=== PATIENT | female | born 1925 | race Caucasian/White ===

== ENCOUNTER 2016-08-25 17:18 | Inpatient (IN) | payer MEDICARE, OTHER ==
[~2016-08-25] VITALS: Ht 152.4 cm; Wt 59.6 kg
[~2016-08-25 17:18] MED LIST: ACET325T9 PO; AMLO5TAB2 PO; BISA10SU2 RC; BUSP10TA PO; CALC200T3 PO; CITA20TA5 PO; DEXT1CAP PO; FERR-26 PO; HYDR12.53 PO; LISI-334 PO; LOPE2TAB27 PO; LORA0.5T PO; MAG360OR24 PO; MIRT15TA PO; MULT-245 PO; POTA10CA PO; SENN1TAB13 PO
[2016-08-25] MEDS ORDERED: ZIPRASIDONE IM 20 MG VIAL. IM ONE (17:45)
[2016-08-25 17:48] LABS: BASO # 0.1 x10^3/uL (0.0-0.2); BASO % 1 % (0-3); EOS % 1 % (0-3); HEMATOCRIT 35.1 % (36.0-47.0); HEMOGLOBIN 11.4 g/dL (12.0-15.5); LYMPH # 3.8 x10^3/uL (1.0-4.8); LYMPH % 39 % (24-48); MEAN CORPUSCULAR HEMOGLOBIN 31 pg (25-35); MEAN CORPUSCULAR HGB CONC 32 g/dL (31-37); MEAN CORPUSCULAR VOLUME 97 fL (79-100); MONO % 9 % (0-9); NEUT % 51 % (31-73); PLATELET COUNT 519 x10^3/uL (140-400); RED BLOOD COUNT 3.63 x10^6/uL (3.50-5.40); RED CELL DISTRIBUTION WIDTH 15.9 % (11.5-14.5); WHITE BLOOD COUNT 9.7 x10^3/uL (4.0-11.0)
[2016-08-25 17:54] LABS: CALCIUM 9.7 mg/dL (8.5-10.1); CREATININE 1.1 mg/dL (0.6-1.0); GFR 46.8
[2016-08-25] MEDS ORDERED: IV NORMAL SALINE 500ML BAG 500 ML IV ONE (18:45)
[2016-08-25 18:50] LABS: ALBUMIN 2.7 g/dL (3.4-5.0); DIRECT BILIRUBIN 0.1 mg/dL (0.0-0.2); TOTAL BILIRUBIN 0.2 mg/dL (0.2-1.0); TOTAL PROTEIN 7.9 g/dL (6.4-8.2)
--- NOTE | 2016-08-25 18:56 | ED.ADGEN ---
Past Medical History Past Medical History: Anemia, Anxiety, Depression, GERD, High Cholesterol, Hypertension, Other Additional Past Medical Histor: Alzheimers, insomnia, pseudobulbar palsy, Past Surgical History: Hip Replacement Alcohol Use: None Drug Use: None Adult General Chief Complaint Chief Complaint: CHEST PAIN HPI HPI Patient is a 89 year old woman, history of Alzheimer's dementia, anemia, anxiety, hypertension, who presents the emergency department via EMS from her nursing facility with a report of 4 days of chest pain. Upon arrival to the emergency room, patient is denying complaints, and is calling for her mother and father, becomes agitated when we attempt to take vitals and obtain laboratory studies. Patient is a very limited historian. Per nursing report, patient has been complaining of pain for 4 days, and her nurse Marybel is "from the nurse gave her report, "she will jump and complain of pain if you even touch her". Review of Systems Review of Systems Patient is denying complaints, however she is a very limited historian. Current Medications Current Medications Current Medications Medications (Trade) Dose Ordered Sig/Antoine Start Time Stop Time Status Last Admin Dose Admin Sodium Chloride (Iv Sodium Chloride 0.9% 500ml Bag) 500 ml @ 500 mls/hr 1X ONCE 08/25/16 18:45 08/25/16 19:44 DC 08/25/16 18:41 500 MLS/HR Ziprasidone 20 mg 20 mg 1X ONCE 08/25/16 17:45 08/25/16 17:46 DC 08/25/16 17:45 20 MG Allergies Allergies Allergies Coded Allergies Type Severity Reaction Last Updated Verified codeine Allergy Intermediate 11/28/13 No sulfamethoxazole Allergy Intermediate 11/28/13 No trimethoprim Allergy Intermediate 11/28/13 No tuberculin, purified protein deriva Allergy Intermediate 11/28/13 No Physical Exam Physical Exam Constitutional: Well developed, thin, no acute distress, non-toxic appearance. Agitated with any contact. HENT: Normocephalic, atraumatic, bilateral external ears normal, oropharynx moist, no oral exudates, nose normal. [] Eyes: PERRLA, EOMI, conjunctiva normal, no discharge. [] Neck: Normal range of motion, no tenderness, supple, no stridor. [] Cardiovascular:Heart rate regular rhythm, no murmur, S1, S2, rubs or gallops. No chest or crepitus or tenderness. [] Lungs & Thorax: Diminished breath sounds at bases bilaterally, no wheezing, rhonchi, rales. No chest wall crepitus, difficult to determine tenderness, as patient is moving and pushing me away. No rashes or lesions identified. [] Abdomen: Bowel sounds normal, soft, no tenderness, no rebound, rigidity, no guarding, no masses, no pulsatile masses. [] Skin: Warm, dry, no erythema, no rash. [] Back: No tenderness, no CVA tenderness. [] Extremities: No tenderness, no cyanosis, no clubbing, ROM intact, no edema. [] Neurologic: Alert and awake, responding to both verbal and tactile stimuli, answer some questions appropriately, repetitively asking for her mother and father, normal motor function, normal sensory function, no focal deficits noted. [] Psychologic: Affect agitated. Current Patient Data Vital Signs Vital Signs Date Time Temp Pulse Resp B/P Pulse Ox O2 Delivery O2 Flow Rate FiO2 08/25/16 19:48 104 151/67 98 Room Air 08/25/16 18:18 22 08/25/16 17:18 97.4 97.4 Lab Values Laboratory Tests Test 08/25/16 17:30 08/25/16 19:56 White Blood Count 9.7x10^3/uL (4.0-11.0) Red Blood Count 3.63x10^6/uL (3.50-5.40) Hemoglobin 11.4g/dL (12.0-15.5) L Hematocrit 35.1% (36.0-47.0) L Mean Corpuscular Volume 97fL (79-100) Mean Corpuscular Hemoglobin 31pg (25-35) Mean Corpuscular Hemoglobin Concent 32g/dL (31-37) Red Cell Distribution Width 15.9% (11.5-14.5) H Platelet Count 519x10^3/uL (140-400) H Neutrophils (%) (Auto) 51% (31-73) Lymphocytes (%) (Auto) 39% (24-48) Monocytes (%) (Auto) 9% (0-9) Eosinophils (%) (Auto) 1% (0-3) Basophils (%) (Auto) 1% (0-3) Neutrophils # (Auto) 4.9x10^3uL (1.8-7.7) Lymphocytes # (Auto) 3.8x10^3/uL (1.0-4.8) Monocytes # (Auto) 0.8x10^3/uL (0.0-1.1) Eosinophils # (Auto) 0.1x10^3/uL (0.0-0.7) Basophils # (Auto) 0.1x10^3/uL (0.0-0.2) Sodium Level 140mmol/L (136-145) Potassium Level 4.0mmol/L (3.5-5.1) Chloride Level 100mmol/L (98-107) Carbon Dioxide Level 37mmol/L (21-32) H Anion Gap 3 (6-14) L Blood Urea Nitrogen 33mg/dL (7-20) H Creatinine 1.1mg/dL (0.6-1.0) H Estimated GFR (Cockcroft-Gault) 46.8 Glucose Level 123mg/dL (70-99) H Calcium Level 9.7mg/dL (8.5-10.1) Total Bilirubin 0.2mg/dL (0.2-1.0) Direct Bilirubin 0.1mg/dL (0.0-0.2) Aspartate Amino Transferase (AST) 19U/L (15-37) Alanine Aminotransferase (ALT) 19U/L (14-59) Alkaline Phosphatase 64U/L (46-116) Troponin I Quantitative < 0.017ng/mL (0.000-0.055) SW-Ziy-O-Type Natriuretic Peptide 335pg/mL (0-449) Total Protein 7.9g/dL (6.4-8.2) Albumin 2.7g/dL (3.4-5.0) L Lipase 72U/L (73-393) L Urine Collection Type U cath Urine Color Yellow Urine Clarity Cloudy Urine pH 7.5 Urine Specific [place] <=1.005 Urine Protein Negativemg/dL (NEG-TRACE) Urine Glucose (UA) Negativemg/dL (NEG) Urine Ketones (Stick) Negativemg/dL (NEG) Urine Blood Small (NEG) Urine Nitrite Negative (NEG) Urine Bilirubin Negative (NEG) Urine Urobilinogen Dipstick 0.2mg/dL (0.2 mg/dL) Urine Leukocyte Esterase Large (NEG) Urine RBC 3-5/HPF (0-2) Urine WBC >40/HPF (0-4) Urine Squamous Epithelial Cells Few/LPF Urine Bacteria Many/HPF (0-FEW) Urine Mucus Mod/LPF Laboratory Tests 08/25/16 17:30 Laboratory Tests 08/25/16 17:30 EKG EKG EC: Sinus rhythm, heart rate 97 beats minute, significant baseline artifact noted, due to patient motion, multiple attempts at ECGs were performed , QTC of 449, [place] 156, QRS is 68, no ST elevations or significant depressions identified, as stated evaluation is limited secondary to baseline artifact, does not meet STEMI criteria. As interpreted by me. [] Radiology/Procedures Radiology/Procedures Chest x-ray: One view: Image is compromised compromise secondary to patient rotation, however appears to be normal cardiac silhouette, normal pulmonary silhouette, no infiltrates, no effusions, no pneumothorax, no soft tissue or bony abnormalities identified. Patient with generalized mineralization. As interpreted by me. [] Course & Med Decision Making Course & Med Decision Making Pertinent Labs and Imaging studies reviewed. (See chart for details) Her nursing report, patient is complaining of chest pain, patient's complaint of chest pain in the ED, but again she is very limited historian. Did receive x- ray, which was unremarkable, ECG which was limited revealing acutely concerning findings, and enzymes in the emergency department, shot reveal acute concerning findings. Patient with mild dehydration. Receiving IV fluids, remained mildly tachycardic in the ED, was given Geodon IM due to agitation. Patient's agitation was improved. Discuss findings as above with Dr. Martin of internal medicine, will admit for serial troponins, and cardiac evaluation, patient accepted his service as a full admission to the medical telemetry floor at this time. Patient resting comfortably in the emergency department, transferred to the telemetry floor without issue, bridge orders entered per discussion. Dragon Disclaimer Dragon Disclaimer This electronic medical record was generated, in whole or in part, using a voice recognition dictation system. Departure Impression: Primary Impression: Chest pain Additional Impressions: Dehydration Tachycardia Disposition: ADMITTED INPATIENT Admitting Physician: Noam Martin Condition: IMPROVED Problem Qualifiers MARY ELLEN HAGER DO August 25, 2016 18:56
[2016-08-25 20:15] LABS: BILIRUBIN,URINE NEGATIVE (NEG); GLUCOSE,URINE NEGATIVE (NEG); NITRITE,URINE NEGATIVE (NEG); PH,URINE 7.5; PROTEIN,URINE NEGATIVE (NEG-TRACE); UROBILINOGEN,URINE 0.2 mg/dL (0.2 mg/dL)
[2016-08-25 20:21] LABS: BACTERIA,URINE MANY /HPF (0-FEW); SQUAMOUS EPITHELIAL CELL,UR FEW /LPF; WBC,URINE >40 /HPF (0-4)
[2016-08-25 22:07] VITALS: BP 132/84
[2016-08-25] MEDS: IV NORMAL SALINE 1000ML BAG 1,000 ML IV SCH (23:05)
[2016-08-25] MEDS ORDERED: ACETAMINOPHEN 325 MG TABLET. PO PRN (23:15)
[2016-08-25] MEDS ORDERED: ONDANSETRON PF 4 MG/2 ML VIAL. IV PRN (23:15)
[2016-08-25] MEDS ORDERED: FLUC150T PO (23:33)
[2016-08-25] MEDS ORDERED: ALPR0.25 PO (23:33)
[2016-08-25] MEDS ORDERED: SERT25TA4 PO (23:33)
[2016-08-25] MEDS ORDERED: BUSP10TA PO (23:33)
[2016-08-25] MEDS ORDERED: PANT20TA2 PO (23:33)
[2016-08-25] MEDS ORDERED: INSU100V8 SQ (23:33)
[2016-08-25] MEDS ORDERED: SPIR25TA PO (23:33)
[2016-08-25] MEDS ORDERED: ASPI81TA2 PO (23:33)
[2016-08-25] MEDS ORDERED: LACT1CAP41 PO (23:33)
[2016-08-25] MEDS ORDERED: DIVA125T PO (23:33)
[2016-08-25] MEDS ORDERED: QUET25TA5 PO (23:33)
[2016-08-25] MEDS ORDERED: METO25TA9 PO (23:33)
[2016-08-25] MEDS ORDERED: CYAN10002 IM (23:33)
--- NOTE | 2016-08-26 00:24 | HP ---
ADMIT DATE: 08/25/2016 CHIEF COMPLAINT: Chest pain. HISTORY OF PRESENT ILLNESS: The patient is a pleasant 89-year-old female who presents with chest pain. She has dementia, so we are really not sure how they can help with that at the facility, but nevertheless we are going to admit her and do a cardiac workup. It should be noted that she also has a urinary tract infection. PAST MEDICAL HISTORY: Dementia. ALLERGIES: None. FAMILY HISTORY: Diabetes and coronary artery disease. SOCIAL HISTORY: She lives in a facility. She does not drink, smoke or take drugs. MEDICATIONS: Reviewed, please refer to the MRAD. REVIEW OF SYSTEMS: Unobtainable, the patient is just too confused. PHYSICAL EXAMINATION: VITAL SIGNS: Temperature afebrile, pulse 100, respirations 18, blood pressure 144/62. GENERAL: She is pleasantly confused. HEART: Normal S1, S2. LUNGS: Clear. ABDOMEN: Soft, decreased bowel sounds. EXTREMITIES: No edema. SKIN: No rashes. PSYCHIATRIC: She is anxious. VASCULAR: Good capillary refill. ENDOCRINE: No thyromegaly. LYMPHATICS: No cervical nodes. HEMATOPOIETIC: No bruising. ASSESSMENT AND PLAN: Chest pain, dementia with incidental finding of a urinary tract infection. The patient has been admitted. We will give her IV fluids, IV antibiotics. Consult Cardiology, serial enzymes, serial EKGs, cardiac monitoring. LIZZIE PORTILLO DO DR: ARIANA/mat JOB#: [id number] / [id number]
--- NOTE | 2016-08-26 01:09 | ACF ---
Admission Forms Criteria CHEST PAIN Clinical Indications for Admission to Inpatient Care (Place 'X' for any and all applicable criteria): Admission is indicated for chest pain and ANY ONE of the following(1)(2)(3)(4)(5 ): [ ]I. Angina with acute coronary syndrome (Also use Myocardial Infarction or Angina guideline) [ ]II. Hemodynamic instability [ ]III. Angina needing acute intervention as indicated by ALL of the following( 11)(12): [ ]a) Unstable angina is present as indicated by angina that is ANY ONE of the following: [ ]i) New onset [ ]ii) Nocturnal [ ]iii) Prolonged at rest [ ]iv) Progressive [ ]b) Angina warrants acute intervention as indicated by ANY ONE of the following: [ ]i) Recurrent angina (e.g, not responding as previously to treatment) [ ]ii) Angina at rest or with low-level activities despite initial medical therapy [ ]iii) New or presumably new ST-segment depression on ECG [ ]iv) Signs or symptoms of heart failure (eg, dyspnea, pulmonary edema) [ ]v) New or worsening mitral regurgitation [ ]vi) Hemodynamic instability [ ]vii) Dangerous arrhythmia (eg, sustained ventricular tachycardia) [ ]viii) History of percutaneous coronary intervention within 6 months [ ]ix) History of coronary artery bypass graft surgery [ ]x) SARAH risk score of 2 or greater[A] [ ]xi) History of Diabetes(14) [ ]xii) High-risk cardiac ischemia findings on noninvasive testing (e.g, echocardiogram, treadmill testing, nuclear scan) [ ]xiii) Chronic renal insufficiency (ie, estimated GFR less than 60 mL/min/1.732m) [ ]xiv) Left ventricular ejection fraction less than 40% [ ]IV. Evidence of CT (eg, cardiac biomarkers positive, ST-segment elevation on ECG) also use Myocardial Infarction Criteria Form. [ ]V. Pulmonary edema [ ]. Respiratory distress [ ]VII. Chest pain indicative of serious diagnosis other than coronary artery disease (eg, aortic dissection) [ ]VIII. Contraindications and/or Inappropriate clinical situations for Observational Care in patients with Chest Pain, when ANY ONE of the following is required: [ ]a) Patient with risk factor for pulmonary embolism, acute coronary syndrome and myocardial infarction (18) [ ]b) Patient with Pulmonary embolism require an average LOS of 4.3 days, therefore emergency department observation management is inappropriate 18,23 [ ]c) Painful condition/s in the elderly, have the highest rate of recidivism after emergency department observation management (10.8%) 20,21,22 [ ]d) Elevated cardiac biomarker requires intensive and exhaustive care (19) [X]IX. General contraindications and/or Inappropriate clinical situations for Observational Care in patients with Chest Pain, when ANY ONE of the following is required: [X]a) Prediction of prolongation of LOS based on ANY ONE of the following may be considered as a contraindication for observational care 2, 3, 4, 5, 6, 7, 8, 9, 10, 11 [X]i) Age > 65 yrs. [ ]ii) Patient arriving by ambulance [ ]iii) Patient with high acuity [ ]iv) Patient requiring vital sign monitoring [X]v) Patient on IV medication [ ]b) Systolic blood pressures 180mmHg 3,12 [ ]c) Patient with altered mental status including delirium and other alteration of consciousness, (3) [ ]d) Patient whose discharge disposition will be to a [facility] home or rehabilitation home should not be managed in Emergency Department Observation Unit. CMS rule requires 3 days hospital stay before such placement. 3,13 [ ]e) Patient with failure to thrive due to broad array of etiologies 3,16,17 [ ]f) Inability to ambulate 3,14 Extended stay beyond goal length of stay may be needed for (1)(28): [ ]a) Specific condition diagnosed after evaluation (eg, pulmonary embolism, aortic dissection) [ ]b) Unstable angina [ ]c) Continued suspicion of acute coronary syndrome with inability to complete needed cardiac evaluation (eg, patient clinically unable to undergo stress testing) [ ]d) Myocardial infarction (Contents from ANGINA and CHEST PAIN clinical indications for admission to inpatient care have been integrated in this form) The original [facility] content created by [employer] has been revised. The portions of the content which have been revised are identified through the use of italic text or in bold, and [email or web address] has neither reviewed nor approved the modified material. All other unmodified content is copyright [employer]. Please see references footnoted in the original [facility] [employer] edition 2016 Admission Criteria Met?: Yes JAVI LLANOS August 26, 2016 01:08
[2016-08-26 03:01] VITALS: BP 128/66
[2016-08-26] MEDS ORDERED: CALCIUM CARBONATE 500 MG TAB.CHEW PO PRN (03:15)
[2016-08-26] MEDS ORDERED: LORAZEPAM 0.5 MG TABLET. PO PRN (03:15)
[2016-08-26] MEDS ORDERED: LOPERAMIDE 2 MG CAPSULE PO PRN (03:15)
[2016-08-26] MEDS ORDERED: ACETAMINOPHEN 325 MG TABLET. PO PRN (03:15)
[2016-08-26] MEDS ORDERED: BISACODYL 10 MG SUPP.RECT. RC PRN (03:15)
[2016-08-26] MEDS ORDERED: MAG HYDROX/ALUMINUM HYD/SIMETH 30 ML ORAL.SUSP PO PRN (03:30)
[2016-08-26 06:29] LABS: BASO # 0.1 x10^3/uL (0.0-0.2); BASO % 1 % (0-3); EOS % 1 % (0-3); HEMATOCRIT 32.4 % (36.0-47.0); HEMOGLOBIN 10.9 g/dL (12.0-15.5); LYMPH # 2.4 x10^3/uL (1.0-4.8); LYMPH % 28 % (24-48); MEAN CORPUSCULAR HEMOGLOBIN 32 pg (25-35); MEAN CORPUSCULAR HGB CONC 34 g/dL (31-37); MEAN CORPUSCULAR VOLUME 96 fL (79-100); MONO % 10 % (0-9); NEUT % 60 % (31-73); PLATELET COUNT 458 x10^3/uL (140-400); RED BLOOD COUNT 3.39 x10^6/uL (3.50-5.40); RED CELL DISTRIBUTION WIDTH 15.9 % (11.5-14.5); WHITE BLOOD COUNT 8.6 x10^3/uL (4.0-11.0)
[2016-08-26 06:36] LABS: CREATININE 0.9 mg/dL (0.6-1.0); POTASSIUM 3.8 mmol/L (3.5-5.1)
--- NOTE | 2016-08-26 06:44 | EKG ---
[facility] [address] [place] [address] Test Date: 2016-08-25 Test Time: 17:55:06 Pat Name: BUCK CEVALLOS Department: Room: [facility] Gender: F Client Services Specialist: : [id number] Requested By: MARY ELLEN HAGER Order Number: [id number] Reading MD: Rukhsana Carbone Measurements Intervals [place] Rate: 97 P: 90 AR: 156 QRS: 38 QRSD: 68 T: 54 QT: 350 QTc: 449 Interpretive Statements SINUS RHYTHM PREMATURE VENTRICULAR CONTRACTIONS ABNORMAL ECG Electronically Signed On 08-26-2016 12:17:31 CDT by Rukhsana Carbone
[2016-08-26 07:05] VITALS: BP 141/67
[2016-08-26] MEDS: PANTOPRAZOLE 40 MG TABLET.DR. PO SCH (07:27)
--- NOTE | 2016-08-26 08:10 | RAD ---
Indication chest pain. Change in mental status. A single view of the chest was obtained and is compared to an examination 11/28/2013. The patient is rotated on the film. The heart and pulmonary vessels appear within normal limits. A focal infiltrate is not seen. There are significant degenerative changes involving the shoulders left greater than right. Moderate compression of some of the thoracic vertebral body segments is noted which is likely chronic IMPRESSION: No acute or focal process seen in the chest
[2016-08-26] MEDS: LORAZEPAM 0.5 MG TABLET. PO SCH (08:32)
[2016-08-26] MEDS: FLUCONAZOLE 100 MG TABLET. PO SCH (08:32)
[2016-08-26] MEDS: ASPIRIN CHEWABLE 81 MG TABLET. PO SCH (08:32)
[2016-08-26] MEDS: LACTOBACILLUS ACIDOPH & BULGAR 1 TABLET. PO SCH ×3 (08:33→21:23)
[2016-08-26] MEDS: MULTIVITAMIN with MINERAL TABLET. PO SCH (08:33)
[2016-08-26] MEDS: DIVALPROEX SPRINKLES 125 MG CAPSULE. PO SCH ×2 (08:33→21:22)
[2016-08-26] MEDS: METOPROLOL TART IMMED RELEASE 25 MG TABLET. PO SCH ×2 (08:34→21:23)
[2016-08-26] MEDS: busPIRone 10 MG TABLET. PO SCH ×3 (08:34→21:23)
[2016-08-26] MEDS: FERROUS SULFATE 325 MG TABLET. PO SCH (08:34)
[2016-08-26] MEDS: DEXTROMETHORPHAN HBR PO SCH ×2 (09:00→21:00)
[2016-08-26] MEDS ORDERED: busPIRone 10 MG TABLET. PO SCH (09:00)
[2016-08-26] MEDS: QUINIDINE PO SCH ×2 (09:00→21:00)
--- NOTE | 2016-08-26 09:21 | PDOC2 ---
BRANDI PETERSEN TRUCK WASHER 08/26/16 0921: CARDIAC CONSULT DATE OF CONSULT Date of Consult DATE: 08/26/16 TIME: 09:14 REASON FOR CONSULT Reason for Consult: Chest pain REFERRING PHYSICIAN Referring Physician: Aleida SOURCE Source: Caregiver (son), Chart review HISTORY OF PRESENT ILLNESS HISTORY OF PRESENT ILLNESS This is a confuse 89 yo female admitted for chest pain and agitation. [facility] [place] [facility] [place] by her sons. Son (Martir) reports that pt does not have hx of heart disease and has not been complaining of any discomfort , SOA, dizziness or palpitations. At this point it is difficult to note the accuracy of any symptoms due to her severe dementia. However staff at the [facility] noted that she maybe having chest pain but at the same time she was touch or moved by staff and she basically noted with generalized discomfort. Currently denies any discomfort and sitting comfortably in bed. She is confused , cooperative and not in any distress. To add she was agitated overnight with notable hallucinations calling out her mother and father per chart review with underlying UTI. Per my discussion with her son, he just wants her to be comfortable, stay conservative, no invasive procedures. PAST MEDICAL HISTORY Cardiovascular: HTN, Hyperlipidemia CENTRAL NERVOUS SYSTEM: Dementia, Other (pseudobulbar palsy) GI: GERD Heme/Onc: Anemia NOS Psych: Anxiety, Depression Musculoskeletal: Osteoarthritis Renal/: UTI, Urinary Incontinence PAST SURGICAL HISTORY Past Surgical History: Total hip replacement FAMILY HISTORY Family History noncontributory to age SOCIAL HISTORY Smoke: No ALCOHOL: none Drugs: None Lives: [facility] Living CURRENT MEDICATIONS CURRENT MEDICATIONS Current Medications Medications (Trade) Dose Ordered Sig/Antoine Route PRN Reason Start Time Stop Time Status Last Admin Dose Admin Ziprasidone 20 mg 20 mg 1X ONCE IM 08/25/16 17:45 08/25/16 17:46 DC 08/25/16 17:45 Sodium Chloride 500 ml @ 500 mls/hr 1X ONCE IV 08/25/16 18:45 08/25/16 19:44 DC 08/25/16 18:41 Ceftriaxone Sodium 50 ml @ 100 mls/hr 1X ONCE IV 08/25/16 20:45 08/25/16 21:14 DC 08/25/16 20:40 Sodium Chloride (Iv Sodium Chloride 0.9% 1000ml Bag) 1,000 ml @ 75 mls/hr [id number] IV 08/25/16 23:05 08/26/16 23:04 08/25/16 23:05 Buspirone HCl (Buspar) 10 mg TID PO 08/26/16 09:00 08/26/16 08:34 Ferrous Sulfate (Feosol) 325 mg DAILY PO 08/26/16 09:00 08/26/16 08:34 Lorazepam (Ativan) 0.25 mg PRN BID PRN PO ANXIETY 08/26/16 03:15 08/26/16 03:26 Lorazepam (Ativan) 0.25 mg DAILY PO 08/26/16 09:00 08/26/16 08:32 Metoprolol Tartrate (Lopressor) 25 mg BID PO 08/26/16 09:00 08/26/16 08:34 Divalproex Sodium (Depakote Sprinkles) 125 mg BID PO 08/26/16 09:00 08/26/16 08:33 Fluconazole (Diflucan) 150 mg DAILY PO 08/26/16 09:00 08/26/16 08:32 Lactobacillus Acidophilus (Bacid, Angelita-Bid) 2 tab TID PO 08/26/16 09:00 08/26/16 08:33 Multivitamins (Thera M Plus) 1 tab DAILY PO 08/26/16 09:00 08/26/16 08:33 Pantoprazole Sodium (Protonix) 40 mg DAILYAC PO 08/26/16 07:30 08/26/16 07:27 Aspirin (Children'S Aspirin) 81 mg DAILY PO 08/26/16 09:00 08/26/16 08:32 ALLERGIES ALLERGIES: Coded Allergies: codeine (Unverified Allergy, Intermediate, 11/28/13) sulfamethoxazole (Unverified Allergy, Intermediate, 11/28/13) trimethoprim (Unverified Allergy, Intermediate, 11/28/13) tuberculin, purified protein deriva (Unverified Allergy, Intermediate, 11/28) ROS Review of System unreliable, severe dementia PHYSICAL EXAM General: Alert, Cooperative, No acute distress HEENT: Atraumatic, Mucous membr. moist/pink Lungs: Clear to auscultation, Normal air movement Heart: Regular rate (SR), Normal S1, Normal S2, Other (2/6 systolic murmur to LLS border) Abdomen: Soft, No tenderness Extremities: No cyanosis, No edema Skin: No breakdown, No significant lesion Neuro: Normal speech, Sensation intact Psych/Mental Status: Other (confuse) MUSCULOSKELETAL: Osteoarthritic changes both hands VITALS VITALS Vital Signs Date Time Temp Pulse Resp B/P Pulse Ox O2 Delivery O2 Flow Rate FiO2 08/26/16 08:34 89 141/67 08/26/16 07:05 96.4 18 97 Room Air 96.4 LABS Lab: Laboratory Tests Test 08/25/16 17:30 08/25/16 19:56 08/26/16 00:15 08/26/16 06:10 White Blood Count 9.7x10^3/uL (4.0-11.0) 8.6x10^3/uL (4.0-11.0) Red Blood Count 3.63x10^6/uL (3.50-5.40) 3.39x10^6/uL (3.50-5.40) Hemoglobin 11.4g/dL (12.0-15.5) 10.9g/dL (12.0-15.5) Hematocrit 35.1% (36.0-47.0) 32.4% (36.0-47.0) Mean Corpuscular Volume 97fL (79-100) 96fL (79-100) Mean Corpuscular Hemoglobin 31pg (25-35) 32pg (25-35) Mean Corpuscular Hemoglobin Concent 32g/dL (31-37) 34g/dL (31-37) Red Cell Distribution Width 15.9% (11.5-14.5) 15.9% (11.5-14.5) Platelet Count 519x10^3/uL (140-400) 458x10^3/uL (140-400) Neutrophils (%) (Auto) 51% (31-73) 60% (31-73) Lymphocytes (%) (Auto) 39% (24-48) 28% (24-48) Monocytes (%) (Auto) 9% (0-9) 10% (0-9) Eosinophils (%) (Auto) 1% (0-3) 1% (0-3) Basophils (%) (Auto) 1% (0-3) 1% (0-3) Neutrophils # (Auto) 4.9x10^3uL (1.8-7.7) 5.1x10^3uL (1.8-7.7) Lymphocytes # (Auto) 3.8x10^3/uL (1.0-4.8) 2.4x10^3/uL (1.0-4.8) Monocytes # (Auto) 0.8x10^3/uL (0.0-1.1) 0.8x10^3/uL (0.0-1.1) Eosinophils # (Auto) 0.1x10^3/uL (0.0-0.7) 0.1x10^3/uL (0.0-0.7) Basophils # (Auto) 0.1x10^3/uL (0.0-0.2) 0.1x10^3/uL (0.0-0.2) Sodium Level 140mmol/L (136-145) 143mmol/L (136-145) Potassium Level 4.0mmol/L (3.5-5.1) 3.8mmol/L (3.5-5.1) Chloride Level 100mmol/L (98-107) 105mmol/L (98-107) Carbon Dioxide Level 37mmol/L (21-32) 32mmol/L (21-32) Anion Gap 3 (6-14) 6 (6-14) Blood Urea Nitrogen 33mg/dL (7-20) 26mg/dL (7-20) Creatinine 1.1mg/dL (0.6-1.0) 0.9mg/dL (0.6-1.0) Estimated GFR (Cockcroft-Gault) 46.8 59.0 Glucose Level 123mg/dL (70-99) 109mg/dL (70-99) Calcium Level 9.7mg/dL (8.5-10.1) 9.0mg/dL (8.5-10.1) Total Bilirubin 0.2mg/dL (0.2-1.0) Direct Bilirubin 0.1mg/dL (0.0-0.2) Aspartate Amino Transf (AST/SGOT) 19U/L (15-37) Alanine Aminotransferase (ALT/SGPT) 19U/L (14-59) Alkaline Phosphatase 64U/L (46-116) Troponin I Quantitative < 0.017ng/mL (0.000-0.055) < 0.017ng/mL (0.000-0.055) < 0.017ng/mL (0.000-0.055) WL-Uwt-A-Type Natriuretic Peptide 335pg/mL (0-449) Total Protein 7.9g/dL (6.4-8.2) Albumin 2.7g/dL (3.4-5.0) Lipase 72U/L (73-393) Urine Collection Type U cath Urine Color Yellow Urine Clarity Cloudy Urine pH 7.5 Urine Specific [place] <=1.005 Urine Protein Negativemg/dL (NEG-TRACE) Urine Glucose (UA) Negativemg/dL (NEG) Urine Ketones (Stick) Negativemg/dL (NEG) Urine Blood Small (NEG) Urine Nitrite Negative (NEG) Urine Bilirubin Negative (NEG) Urine Urobilinogen Dipstick 0.2mg/dL (0.2 mg/dL) Urine Leukocyte Esterase Large (NEG) Urine RBC 3-5/HPF (0-2) Urine WBC >40/HPF (0-4) Urine Squamous Epithelial Cells Few/LPF Urine Bacteria Many/HPF (0-FEW) Urine Mucus Mod/LPF Test 08/26/16 07:24 Glucose (Fingerstick) 78mg/dL (70-99) ECHOCARDIOGRAM ECHOCARDIOGRAM <Conclusion> j Left ventricle systolic function is normal. The Ejection Fraction is 50-55%. The left atrium size is normal. The aortic valve is normal in structure and function. The mitral valve is normal in structure and function. Doppler and Color Flow revealed mild mitral regurgitation. Doppler and Color Flow revealed mild tricuspid regurgitation. The PA pressure was estimated at 37 mmHg. Doppler and Color Flow revealed trace pulmonic valvular regurgitation. DATE: 11/30/13 1248 ASSESSMENT/PLAN ASSESSMENT/PLAN 1. Atypical CP: troponin series normal. EKG SR with no acute changes 2. UTI: per PCP 3. HTN: controlled 4. Severe dementia with Alzheimer's 5. Dehydration: per PCP Recommendations 1. CP likely MSK, discussed significantly with son, maintain conservative measures given her severe dementia and advanced age. 2. No further testing, will sign off. Problems: COLEMAN ADKINS MD 08/26/16 2151: CARDIAC CONSULT ALLERGIES ALLERGIES: Coded Allergies: codeine (Unverified Allergy, Intermediate, 11/28/13) sulfamethoxazole (Unverified Allergy, Intermediate, 11/28/13) trimethoprim (Unverified Allergy, Intermediate, 11/28/13) tuberculin, purified protein deriva (Unverified Allergy, Intermediate, 11/28) ASSESSMENT/PLAN ASSESSMENT/PLAN Pt. seen and examined. Agree with above DRYING SUPERVISOR note. 89 yo with severe dementia. Normal cardiac exam echo ordered by hospitalist service, which reveals normal funciton Thanks for consult. No further testing. Problems: BRANDI PETERSEN APRN August 26, 2016 09:21 COLEMAN ADKINS MD August 26, 2016 21:51
[2016-08-26 10:48] VITALS: BP 121/58
[2016-08-26] MEDS ORDERED: SPIRONOLACTONE 25 MG TABLET PO SCH (13:00)
[2016-08-26] MEDS: QUEtiapine 25 MG TABLET. PO SCH (13:10)
[2016-08-26] MEDS: IV NORMAL SALINE 1000ML BAG 1,000 ML IV SCH (13:19)
--- NOTE | 2016-08-26 13:35 | PDOC ---
PROGRESS NOTES Chief Complaint Chief Complaint 1. chest pain, atypical, likely 2/2 muscular pain 2. severe dementia 3. DNR, from SNF 4. HTN 5. dehydration 6. + UA 7. moderate malnutrition with low po intake 8. bedbound plan: card consult, no intervention check echo cont home meds, levemir 5u qhs, SSI dc aldactone ivf nutrition consult dvt ppx History of Present Illness History of Present Illness chest pain gone, chest wall mild tenderness Vitals Vitals Vital Signs Date Time Temp Pulse Resp B/P Pulse Ox O2 Delivery O2 Flow Rate FiO2 08/26/16 10:48 97.9 66 18 121/58 97 Room Air 97.9 Physical Exam General: Alert, Cooperative, No acute distress Heart: Regular rate (SR), Normal S1, Normal S2, Other (2/6 systolic murmur to LLS border) Lungs: Clear Abdomen: Soft, No tenderness Extremities: No cyanosis, No edema Skin: No breakdown, No significant lesion Labs LABS Laboratory Tests Test 08/25/16 17:30 08/25/16 19:56 08/26/16 00:15 08/26/16 06:00 White Blood Count 9.7x10^3/uL (4.0-11.0) Red Blood Count 3.63x10^6/uL (3.50-5.40) Hemoglobin 11.4g/dL (12.0-15.5) Hematocrit 35.1% (36.0-47.0) Mean Corpuscular Volume 97fL (79-100) Mean Corpuscular Hemoglobin 31pg (25-35) Mean Corpuscular Hemoglobin Concent 32g/dL (31-37) Red Cell Distribution Width 15.9% (11.5-14.5) Platelet Count 519x10^3/uL (140-400) Neutrophils (%) (Auto) 51% (31-73) Lymphocytes (%) (Auto) 39% (24-48) Monocytes (%) (Auto) 9% (0-9) Eosinophils (%) (Auto) 1% (0-3) Basophils (%) (Auto) 1% (0-3) Neutrophils # (Auto) 4.9x10^3uL (1.8-7.7) Lymphocytes # (Auto) 3.8x10^3/uL (1.0-4.8) Monocytes # (Auto) 0.8x10^3/uL (0.0-1.1) Eosinophils # (Auto) 0.1x10^3/uL (0.0-0.7) Basophils # (Auto) 0.1x10^3/uL (0.0-0.2) Sodium Level 140mmol/L (136-145) Potassium Level 4.0mmol/L (3.5-5.1) Chloride Level 100mmol/L (98-107) Carbon Dioxide Level 37mmol/L (21-32) Anion Gap 3 (6-14) Blood Urea Nitrogen 33mg/dL (7-20) Creatinine 1.1mg/dL (0.6-1.0) Estimated GFR (Cockcroft-Gault) 46.8 Glucose Level 123mg/dL (70-99) Calcium Level 9.7mg/dL (8.5-10.1) Total Bilirubin 0.2mg/dL (0.2-1.0) Direct Bilirubin 0.1mg/dL (0.0-0.2) Aspartate Amino Transf (AST/SGOT) 19U/L (15-37) Alanine Aminotransferase (ALT/SGPT) 19U/L (14-59) Alkaline Phosphatase 64U/L (46-116) Troponin I Quantitative < 0.017ng/mL (0.000-0.055) < 0.017ng/mL (0.000-0.055) XK-Zxz-O-Type Natriuretic Peptide 335pg/mL (0-449) Total Protein 7.9g/dL (6.4-8.2) Albumin 2.7g/dL (3.4-5.0) Lipase 72U/L (73-393) Urine Collection Type U cath Urine Color Yellow Urine Clarity Cloudy Urine pH 7.5 Urine Specific Leon <=1.005 Urine Protein Negativemg/dL (NEG-TRACE) Urine Glucose (UA) Negativemg/dL (NEG) Urine Ketones (Stick) Negativemg/dL (NEG) Urine Blood Small (NEG) Urine Nitrite Negative (NEG) Urine Bilirubin Negative (NEG) Urine Urobilinogen Dipstick 0.2mg/dL (0.2 mg/dL) Urine Leukocyte Esterase Large (NEG) Urine RBC 3-5/HPF (0-2) Urine WBC >40/HPF (0-4) Urine Squamous Epithelial Cells Few/LPF Urine Bacteria Many/HPF (0-FEW) Urine Mucus Mod/LPF Nasal Screen MRSA (PCR) Negative (Negative) Test 08/26/16 06:10 08/26/16 07:24 08/26/16 11:17 White Blood Count 8.6x10^3/uL (4.0-11.0) Red Blood Count 3.39x10^6/uL (3.50-5.40) Hemoglobin 10.9g/dL (12.0-15.5) Hematocrit 32.4% (36.0-47.0) Mean Corpuscular Volume 96fL (79-100) Mean Corpuscular Hemoglobin 32pg (25-35) Mean Corpuscular Hemoglobin Concent 34g/dL (31-37) Red Cell Distribution Width 15.9% (11.5-14.5) Platelet Count 458x10^3/uL (140-400) Neutrophils (%) (Auto) 60% (31-73) Lymphocytes (%) (Auto) 28% (24-48) Monocytes (%) (Auto) 10% (0-9) Eosinophils (%) (Auto) 1% (0-3) Basophils (%) (Auto) 1% (0-3) Neutrophils # (Auto) 5.1x10^3uL (1.8-7.7) Lymphocytes # (Auto) 2.4x10^3/uL (1.0-4.8) Monocytes # (Auto) 0.8x10^3/uL (0.0-1.1) Eosinophils # (Auto) 0.1x10^3/uL (0.0-0.7) Basophils # (Auto) 0.1x10^3/uL (0.0-0.2) Sodium Level 143mmol/L (136-145) Potassium Level 3.8mmol/L (3.5-5.1) Chloride Level 105mmol/L (98-107) Carbon Dioxide Level 32mmol/L (21-32) Anion Gap 6 (6-14) Blood Urea Nitrogen 26mg/dL (7-20) Creatinine 0.9mg/dL (0.6-1.0) Estimated GFR (Cockcroft-Gault) 59.0 Glucose Level 109mg/dL (70-99) Calcium Level 9.0mg/dL (8.5-10.1) Troponin I Quantitative < 0.017ng/mL (0.000-0.055) Glucose (Fingerstick) 78mg/dL (70-99) 133mg/dL (70-99) Review of Systems Review of Systems No fever, chills, sob or chest pain Assessment and Plan Assessmemt and Plan Problems Medical Problems: (1) Chest pain Status: Acute (2) Dehydration Status: Acute (3) Tachycardia Status: Acute Problems: Comment Review of Relevant I have reviewed the following items jarred (where applicable) has been applied. Labs Laboratory Tests Test 08/25/16 17:30 08/25/16 19:56 08/26/16 00:15 08/26/16 06:00 White Blood Count 9.7x10^3/uL (4.0-11.0) Red Blood Count 3.63x10^6/uL (3.50-5.40) Hemoglobin 11.4g/dL (12.0-15.5) Hematocrit 35.1% (36.0-47.0) Mean Corpuscular Volume 97fL (79-100) Mean Corpuscular Hemoglobin 31pg (25-35) Mean Corpuscular Hemoglobin Concent 32g/dL (31-37) Red Cell Distribution Width 15.9% (11.5-14.5) Platelet Count 519x10^3/uL (140-400) Neutrophils (%) (Auto) 51% (31-73) Lymphocytes (%) (Auto) 39% (24-48) Monocytes (%) (Auto) 9% (0-9) Eosinophils (%) (Auto) 1% (0-3) Basophils (%) (Auto) 1% (0-3) Neutrophils # (Auto) 4.9x10^3uL (1.8-7.7) Lymphocytes # (Auto) 3.8x10^3/uL (1.0-4.8) Monocytes # (Auto) 0.8x10^3/uL (0.0-1.1) Eosinophils # (Auto) 0.1x10^3/uL (0.0-0.7) Basophils # (Auto) 0.1x10^3/uL (0.0-0.2) Sodium Level 140mmol/L (136-145) Potassium Level 4.0mmol/L (3.5-5.1) Chloride Level 100mmol/L (98-107) Carbon Dioxide Level 37mmol/L (21-32) Anion Gap 3 (6-14) Blood Urea Nitrogen 33mg/dL (7-20) Creatinine 1.1mg/dL (0.6-1.0) Estimated GFR (Cockcroft-Gault) 46.8 Glucose Level 123mg/dL (70-99) Calcium Level 9.7mg/dL (8.5-10.1) Total Bilirubin 0.2mg/dL (0.2-1.0) Direct Bilirubin 0.1mg/dL (0.0-0.2) Aspartate Amino Transf (AST/SGOT) 19U/L (15-37) Alanine Aminotransferase (ALT/SGPT) 19U/L (14-59) Alkaline Phosphatase 64U/L (46-116) Troponin I Quantitative < 0.017ng/mL (0.000-0.055) < 0.017ng/mL (0.000-0.055) VS-Mat-W-Type Natriuretic Peptide 335pg/mL (0-449) Total Protein 7.9g/dL (6.4-8.2) Albumin 2.7g/dL (3.4-5.0) Lipase 72U/L (73-393) Urine Collection Type U cath Urine Color Yellow Urine Clarity Cloudy Urine pH 7.5 Urine Specific Leon <=1.005 Urine Protein Negativemg/dL (NEG-TRACE) Urine Glucose (UA) Negativemg/dL (NEG) Urine Ketones (Stick) Negativemg/dL (NEG) Urine Blood Small (NEG) Urine Nitrite Negative (NEG) Urine Bilirubin Negative (NEG) Urine Urobilinogen Dipstick 0.2mg/dL (0.2 mg/dL) Urine Leukocyte Esterase Large (NEG) Urine RBC 3-5/HPF (0-2) Urine WBC >40/HPF (0-4) Urine Squamous Epithelial Cells Few/LPF Urine Bacteria Many/HPF (0-FEW) Urine Mucus Mod/LPF Nasal Screen MRSA (PCR) Negative (Negative) Test 08/26/16 06:10 08/26/16 07:24 08/26/16 11:17 White Blood Count 8.6x10^3/uL (4.0-11.0) Red Blood Count 3.39x10^6/uL (3.50-5.40) Hemoglobin 10.9g/dL (12.0-15.5) Hematocrit 32.4% (36.0-47.0) Mean Corpuscular Volume 96fL (79-100) Mean Corpuscular Hemoglobin 32pg (25-35) Mean Corpuscular Hemoglobin Concent 34g/dL (31-37) Red Cell Distribution Width 15.9% (11.5-14.5) Platelet Count 458x10^3/uL (140-400) Neutrophils (%) (Auto) 60% (31-73) Lymphocytes (%) (Auto) 28% (24-48) Monocytes (%) (Auto) 10% (0-9) Eosinophils (%) (Auto) 1% (0-3) Basophils (%) (Auto) 1% (0-3) Neutrophils # (Auto) 5.1x10^3uL (1.8-7.7) Lymphocytes # (Auto) 2.4x10^3/uL (1.0-4.8) Monocytes # (Auto) 0.8x10^3/uL (0.0-1.1) Eosinophils # (Auto) 0.1x10^3/uL (0.0-0.7) Basophils # (Auto) 0.1x10^3/uL (0.0-0.2) Sodium Level 143mmol/L (136-145) Potassium Level 3.8mmol/L (3.5-5.1) Chloride Level 105mmol/L (98-107) Carbon Dioxide Level 32mmol/L (21-32) Anion Gap 6 (6-14) Blood Urea Nitrogen 26mg/dL (7-20) Creatinine 0.9mg/dL (0.6-1.0) Estimated GFR (Cockcroft-Gault) 59.0 Glucose Level 109mg/dL (70-99) Calcium Level 9.0mg/dL (8.5-10.1) Troponin I Quantitative < 0.017ng/mL (0.000-0.055) Glucose (Fingerstick) 78mg/dL (70-99) 133mg/dL (70-99) Laboratory Tests Test 08/25/16 17:30 08/25/16 19:56 08/26/16 00:15 08/26/16 06:00 White Blood Count 9.7x10^3/uL (4.0-11.0) Red Blood Count 3.63x10^6/uL (3.50-5.40) Hemoglobin 11.4g/dL (12.0-15.5) Hematocrit 35.1% (36.0-47.0) Mean Corpuscular Volume 97fL (79-100) Mean Corpuscular Hemoglobin 31pg (25-35) Mean Corpuscular Hemoglobin Concent 32g/dL (31-37) Red Cell Distribution Width 15.9% (11.5-14.5) Platelet Count 519x10^3/uL (140-400) Neutrophils (%) (Auto) 51% (31-73) Lymphocytes (%) (Auto) 39% (24-48) Monocytes (%) (Auto) 9% (0-9) Eosinophils (%) (Auto) 1% (0-3) Basophils (%) (Auto) 1% (0-3) Neutrophils # (Auto) 4.9x10^3uL (1.8-7.7) Lymphocytes # (Auto) 3.8x10^3/uL (1.0-4.8) Monocytes # (Auto) 0.8x10^3/uL (0.0-1.1) Eosinophils # (Auto) 0.1x10^3/uL (0.0-0.7) Basophils # (Auto) 0.1x10^3/uL (0.0-0.2) Sodium Level 140mmol/L (136-145) Potassium Level 4.0mmol/L (3.5-5.1) Chloride Level 100mmol/L (98-107) Carbon Dioxide Level 37mmol/L (21-32) Anion Gap 3 (6-14) Blood Urea Nitrogen 33mg/dL (7-20) Creatinine 1.1mg/dL (0.6-1.0) Estimated GFR (Cockcroft-Gault) 46.8 Glucose Level 123mg/dL (70-99) Calcium Level 9.7mg/dL (8.5-10.1) Total Bilirubin 0.2mg/dL (0.2-1.0) Direct Bilirubin 0.1mg/dL (0.0-0.2) Aspartate Amino Transf (AST/SGOT) 19U/L (15-37) Alanine Aminotransferase (ALT/SGPT) 19U/L (14-59) Alkaline Phosphatase 64U/L (46-116) Troponin I Quantitative < 0.017ng/mL (0.000-0.055) < 0.017ng/mL (0.000-0.055) XW-Cml-G-Type Natriuretic Peptide 335pg/mL (0-449) Total Protein 7.9g/dL (6.4-8.2) Albumin 2.7g/dL (3.4-5.0) Lipase 72U/L (73-393) Urine Collection Type U cath Urine Color Yellow Urine Clarity Cloudy Urine pH 7.5 Urine Specific Leon <=1.005 Urine Protein Negativemg/dL (NEG-TRACE) Urine Glucose (UA) Negativemg/dL (NEG) Urine Ketones (Stick) Negativemg/dL (NEG) Urine Blood Small (NEG) Urine Nitrite Negative (NEG) Urine Bilirubin Negative (NEG) Urine Urobilinogen Dipstick 0.2mg/dL (0.2 mg/dL) Urine Leukocyte Esterase Large (NEG) Urine RBC 3-5/HPF (0-2) Urine WBC >40/HPF (0-4) Urine Squamous Epithelial Cells Few/LPF Urine Bacteria Many/HPF (0-FEW) Urine Mucus Mod/LPF Nasal Screen MRSA (PCR) Negative (Negative) Test 08/26/16 06:10 08/26/16 07:24 08/26/16 11:17 White Blood Count 8.6x10^3/uL (4.0-11.0) Red Blood Count 3.39x10^6/uL (3.50-5.40) Hemoglobin 10.9g/dL (12.0-15.5) Hematocrit 32.4% (36.0-47.0) Mean Corpuscular Volume 96fL (79-100) Mean Corpuscular Hemoglobin 32pg (25-35) Mean Corpuscular Hemoglobin Concent 34g/dL (31-37) Red Cell Distribution Width 15.9% (11.5-14.5) Platelet Count 458x10^3/uL (140-400) Neutrophils (%) (Auto) 60% (31-73) Lymphocytes (%) (Auto) 28% (24-48) Monocytes (%) (Auto) 10% (0-9) Eosinophils (%) (Auto) 1% (0-3) Basophils (%) (Auto) 1% (0-3) Neutrophils # (Auto) 5.1x10^3uL (1.8-7.7) Lymphocytes # (Auto) 2.4x10^3/uL (1.0-4.8) Monocytes # (Auto) 0.8x10^3/uL (0.0-1.1) Eosinophils # (Auto) 0.1x10^3/uL (0.0-0.7) Basophils # (Auto) 0.1x10^3/uL (0.0-0.2) Sodium Level 143mmol/L (136-145) Potassium Level 3.8mmol/L (3.5-5.1) Chloride Level 105mmol/L (98-107) Carbon Dioxide Level 32mmol/L (21-32) Anion Gap 6 (6-14) Blood Urea Nitrogen 26mg/dL (7-20) Creatinine 0.9mg/dL (0.6-1.0) Estimated GFR (Cockcroft-Gault) 59.0 Glucose Level 109mg/dL (70-99) Calcium Level 9.0mg/dL (8.5-10.1) Troponin I Quantitative < 0.017ng/mL (0.000-0.055) Glucose (Fingerstick) 78mg/dL (70-99) 133mg/dL (70-99) Medications Current Medications Ziprasidone 20 mg 20 mg 1X ONCE IM Last administered on 08/25/16 17:45; Start 08/25/16 at 17:45; Stop 08/25/16 at 17:46; Status DC Sodium Chloride 500 ml @ 500 mls/hr 1X ONCE IV Last administered on 08/25/16 18:41; Start 08/25/16 at 18:45; Stop 08/25/16 at 19:44; Status DC Ceftriaxone Sodium 50 ml @ 100 mls/hr 1X ONCE IV Last administered on 20:40; Start 08/25/16 at 20:45; Stop 08/25/16 at 21:14; Status DC Ceftriaxone Sodium/Sodium Chloride (Rocephin/Iv Sodium Chloride 0.9% 50ml) 50 ml @ 100 mls/hr Q24H IV ; Start 08/26/16 at 21:00 Ondansetron HCl 4 mg 4 mg PRN Q8HRS PRN IV NAUSEA/VOMITING; Start 08/25/16 at 23 :15; Stop 08/26/16 at 23:14 Sodium Chloride (Iv Sodium Chloride 0.9% 1000ml Bag) 1,000 ml @ 75 mls/hr [id number] IV Last administered on 08/26/16 13:19; Start 08/25/16 at 23:05; Stop at 23:04 Acetaminophen (Tylenol) 650 mg PRN Q4HRS PRN PO FEVER; Start 08/25/16 at 23:15; Stop 08/26/16 at 03:20; Status DC Acetaminophen (Tylenol) 650 mg PRN Q6HRS PRN PO MILD PAIN; Start 08/26/16 at 03: 15 Alprazolam (Xanax) 0.25 mg PRN TID PRN PO ANXIETY / AGITATION; Start 08/26/16 at 03:15 Bisacodyl (Dulcolax Supp) 10 mg PRN DAILY PRN RC CONSTIPATION; Start 08/26/16 at 03:15 Buspirone HCl (Buspar) 10 mg TID PO Last administered on 08/26/16 13:10; Start 08/26/16 at 09:00 Calcium Carbonate/ Glycine (Tums) 500 mg TID PRN PRN PO HEARTBURN / GAS; Start 08/26/16 at 03:15 Cyanocobalamin (Vitamin B-12) 1,000 mcg QMONTH IM ; Start 09/16/16 at 09:00 Ferrous Sulfate (Feosol) 325 mg DAILY PO Last administered on 08/26/16 08:34; Start 08/26/16 at 09:00 Lorazepam (Ativan) 0.25 mg PRN BID PRN PO ANXIETY Last administered on 03:26; Start 08/26/16 at 03:15 Lorazepam (Ativan) 0.25 mg DAILY PO Last administered on 08/26/16 08:32; Start 08/26/16 at 09:00 Metoprolol Tartrate (Lopressor) 25 mg BID PO Last administered on 08/26/16 08: 34; Start 08/26/16 at 09:00 Mirtazapine (Remeron) 15 mg HS PO ; Start 08/26/16 at 21:00 Quetiapine Fumarate (SEROquel) 25 mg AFTRNOON PO Last administered on 08/26/16 13:10; Start 08/26/16 at 13:00 Sertraline HCl (Zoloft) 25 mg HS PO ; Start 08/26/16 at 21:00 Spironolactone (Aldactone) 25 mg AFTRNOON PO Last administered on 08/26/16 13: 10; Start 08/26/16 at 13:00 Non-Formulary Medication 1 each BID PO ; Start 08/26/16 at 09:00; Status UNV Divalproex Sodium (Depakote Sprinkles) 125 mg BID PO Last administered on 08:33; Start 08/26/16 at 09:00 Fluconazole (Diflucan) 150 mg DAILY PO Last administered on 08/26/16 08:32; Start 08/26/16 at 09:00 Insulin Detemir (Levemir) 5 units QHS SQ ; Start 08/26/16 at 21:00 Lactobacillus Acidophilus (Bacid, Angelita-Bid) 2 tab TID PO Last administered on 13:10; Start 08/26/16 at 09:00 Al Hydroxide/Mg Hydroxide (Mylanta Plus Xs) 30 ml PRN Q2HR PRN PO HEARTBURN / GAS; Start 08/26/16 at 03:30 Multivitamins (Thera M Plus) 1 tab DAILY PO Last administered on 08/26/16 08:33 ; Start 08/26/16 at 09:00 Pantoprazole Sodium (Protonix) 40 mg DAILYAC PO Last administered on 08/26/16 07:27; Start 08/26/16 at 07:30 Aspirin (Children'S Aspirin) 81 mg DAILY PO Last administered on 08/26/16 08:32 ; Start 08/26/16 at 09:00 Buspirone HCl (Buspar) 10 mg TID PO ; Start 08/26/16 at 09:00; Status UNV Loperamide HCl (Imodium) 2 mg TID PRN PRN PO DIARRHEA; Start 08/26/16 at 03:15 Active Scripts Active Reported Xanax (Alprazolam) 0.25 Mg Tablet 0.25 Mg PO PRN TID PRN Sertraline Hcl 25 Mg Tablet 25 Mg PO HS Seroquel (Quetiapine Fumarate) 25 Mg Tablet 1 Tab PO AFTRNOON Protonix (Pantoprazole Sodium) 20 Mg Tablet.dr 1 Tab PO BID Metoprolol Succinate ( Xl ) (Metoprolol Succinate) 25 Mg Tab.er.24h 1 Tab PO BID Lantus (Insulin Glargine,Hum.rec.anlog) 100 Unit/1 Ml Vial 5 Unit SQ HS Diflucan (Fluconazole) 150 Mg Tablet 150 Mg PO DAILY Depakote (Divalproex Sodium) 125 Mg Tablet.dr 125 Mg PO BID Cyanocobalamin Injection (Cyanocobalamin (Vitamin B-12)) 1,000 Mcg/1 Ml Vial 1 Ml IM QMONTH Buspirone Hcl 10 Mg Tablet 1 Tab PO TID Aspirin 81 Mg Tab.chew 1 Tab PO DAILY Aldactone (Spironolactone) 25 Mg Tablet 1 Tab PO AFTRNOON Acidophilus-Pectin Capsule (Lactobacillus Acidophilus/Pect) 1 Each Capsule 1 Each PO TID Tylenol (Acetaminophen) 325 Mg Tablet 650 Mg PO PRN Q6HRS PRN Remeron (Mirtazapine) 15 Mg Tablet 15 Mg PO HS Lorazepam 0.5 Mg Tablet 0.25 Mg PO DAILY Lorazepam 0.5 Mg Tablet 0.25 Mg PO BID PRN Buspirone Hcl 10 Mg Tablet 1 Tab PO TID Tums (Calcium Carbonate) 200 Mg Tab.chew 200 Mg PO PRN PRN Bisacodyl 10 Mg Supp.rect 10 Mg RC PRN DAILY PRN Alum-Mag Hydroxide-Simeth Liq (Mag Hydrox/Al Hydrox/Simeth) 360 Ml Oral.susp 30 Ml PO PRN PRN Loperamide (Loperamide Hcl) 2 Mg Tablet 2 Mg PO Nuedexta 20-10 Mg Capsule (Dextromethorphan Hbr/Quinidine) 1 Each Capsule 1 Each PO BID Multi Vitamin Daily (Multivitamin) 1 Each Tablet 1 Each PO DAILY Ferrous Sulfate 325 Mg Tablet 325 Mg PO DAILY Vitals/I & O Vital Sign - Last 24 Hours 08/25/16 08/25/16 08/25/16 08/25/16 17:18 17:48 18:18 18:48 Temp 97.4 97.4 Pulse 95 94 108 96 Resp 20 22 B/P 137/70 138/73 139/72 138/93 Pulse Ox 97 98 98 96 O2 Delivery Room Air Room Air Room Air Room Air 08/25/16 08/25/16 08/25/16 08/25/16 19:18 19:48 20:18 20:48 Pulse 104 102 104 Resp B/P 134/106 151/67 132/73 165/67 Pulse Ox 98 98 97 O2 Delivery Room Air Room Air Room Air Room Air 08/25/16 08/25/16 08/26/16 08/26/16 22:00 22:07 03:01 07:05 Temp 97.7 96.3 96.4 97.7 96.3 96.4 Pulse 104 87 89 Resp B/P 132/84 128/66 141/67 Pulse Ox 97 97 97 O2 Delivery Room Air Room Air Room Air Room Air 08/26/16 08/26/16 08/26/16 08:00 08:34 10:48 Temp 97.9 97.9 Pulse 89 66 Resp 18 B/P 141/67 121/58 Pulse Ox 97 O2 Delivery Room Air Room Air Intake and Output 08/25/16 08/25/16 08/26/16 15:00 23:00 07:00 Intake Total 550 ml 120 ml Balance 550 ml 120 ml SURESH HALL MD August 26, 2016 13:35
[2016-08-26] MEDS ORDERED: DEXTROSE 50% 25 GM / 50ML DISP.SYRIN. IV PRN (13:45)
[2016-08-26] MEDS: INSULIN ASPART 300 UNITS/3 ML INSULN.PEN SQ SCH ×2 (13:47→16:44)
[2016-08-26 14:38] VITALS: BP 105/54
--- NOTE | 2016-08-26 16:25 | CARD ---
APPROVED REPORT EXAM: Two-dimensional and M-mode echocardiogram with Doppler and color Doppler. Other Information Quality : Technically Limited Rhythm : NSR INDICATION Chest pain 2D DIMENSIONS RVDd1.8 (2.9-3.5cm)Left Atrium(2D)2.4 (1.6-4.0cm) IVSd0.7 (0.7-1.1cm)Aortic Root(2D)2.6 (2.0-3.7cm) LVDd3.7 (3.9-5.9cm)LVOT Diameter2.0 (1.8-2.4cm) PWd0.7 (0.7-1.1cm)LVDs1.9 (2.5-4.0cm) FS (%) 48.9 %SV48.2 ml LVEF(%)61.0 (>50%) Aortic Valve AoV Peak Jaycob.109.0cm/sAoV VTI23.3cm AO Peak GR.4.8mmHgLVOT VTI 25.38cm AO Mean GR.3mmHgAVA (VTI)3.30cm2 Mitral Valve MV E Rbcwketr39.3cm/sMV E Peak Gr.4mmHg MV DECEL [id number] A [place]20.1cm/s MV E Mean Gr.2mmHgMV [id number] E/A Ratio0.8MV A [id number] MVA (PHT)2.62cm2 TDI Lateral E' P. V5.33cm/sMedial E' P. V5.53cm/s E/Lateral E'13.6E/Medial E'13.1 Tricuspid Valve TR P. [id number]/sTR Peak Gr.9mmHg LEFT VENTRICLE The left ventricle is normal size. There is normal left ventricular wall thickness. Left ventricle sy stolic function is normal. The Ejection Fraction is 60-65%. Wall motion unable to be accurately delin eated due to suboptimal images from patient non-compliance. The left ventricular diastolic function a nd filling is normal for age. RIGHT VENTRICLE The right ventricle is normal size. The right ventricular systolic function is normal. ATRIA The left atrium size is normal. The right atrium size is normal. The interatrial septum is intact wit h no evidence for an atrial septal defect or patent foramen ovale as noted on 2-D or Doppler imaging. AORTIC VALVE The aortic valve is mildly calcified. The aortic valve is trileaflet. Doppler and Color Flow revealed no significant aortic regurgitation. There is no significant aortic valvular stenosis. MITRAL VALVE Mitral annular calcification is moderate. The mitral valve leaflets are calcified. There is no mitral valve stenosis. Doppler and Color Flow revealed trace mitral regurgitation. TRICUSPID VALVE The tricuspid valve is not well visualized. Doppler and Color Flow revealed no tricuspid valve regurg itation noted. Unable to accurately estimate PA pressure. There is no tricuspid valve stenosis. PULMONIC VALVE The pulmonic valve is not well visualized. Doppler and Color Flow revealed no pulmonic valvular regur gitation. There is no pulmonic valvular stenosis. GREAT VESSELS The aortic root is normal in size. Pulmonary veins not recorded. The IVC was not visualized. PERICARDIAL EFFUSION There is no evidence of significant pericardial effusion. Critical Notification Critical Value: No <Conclusion> Left ventricle systolic function is normal. The Ejection Fraction is 60-65%. Wall motion unable to be accurately delineated due to suboptimal images from patient non-compliance. Patient was confused and agitated, limiting exam.
[2016-08-26] MEDS: ALPRAZolam 0.25 MG TABLET PO PRN ×2 (17:26→21:23)
[2016-08-26 19:00] VITALS: BP 133/79
[2016-08-26] MEDS: SERTRALINE 25 MG TABLET. PO SCH (21:22)
[2016-08-26] MEDS: MIRTAZAPINE 15 MG TABLET PO SCH (21:22)
[2016-08-26] MEDS: INSULIN DETEMIR 300 UNITS/3 ML INSULN.PEN. SQ SCH (21:33)
[2016-08-26 23:00] VITALS: BP 85/37
[2016-08-27 03:00] VITALS: BP 129/54
[2016-08-27 04:23] LABS: BASO % 1 % (0-3); EOS % 2 % (0-3); HEMATOCRIT 27.9 % (36.0-47.0); HEMOGLOBIN 8.9 g/dL (12.0-15.5); LYMPH % 30 % (24-48); MEAN CORPUSCULAR HEMOGLOBIN 31 pg (25-35); MEAN CORPUSCULAR HGB CONC 32 g/dL (31-37); MEAN CORPUSCULAR VOLUME 97 fL (79-100); MONO % 10 % (0-9); NEUT % 57 % (31-73); PLATELET COUNT 366 x10^3/uL (140-400); RED BLOOD COUNT 2.87 x10^6/uL (3.50-5.40); RED CELL DISTRIBUTION WIDTH 15.7 % (11.5-14.5); WHITE BLOOD COUNT 6.7 x10^3/uL (4.0-11.0)
[2016-08-27 04:27] LABS: CALCIUM 8.2 mg/dL (8.5-10.1); CREATININE 0.9 mg/dL (0.6-1.0)
[2016-08-27 07:00] VITALS: BP 133/68
[2016-08-27] MEDS: INSULIN ASPART 300 UNITS/3 ML INSULN.PEN SQ SCH ×3 (08:00→17:00)
[2016-08-27] MEDS: DEXTROMETHORPHAN HBR PO SCH (09:00)
[2016-08-27] MEDS: QUINIDINE PO SCH (09:00)
[2016-08-27] MEDS ORDERED: POTASSIUM CHLORIDE 20 MEQ TABLET.ER. PO ONE (09:00)
[2016-08-27] MEDS: DIVALPROEX SPRINKLES 125 MG CAPSULE. PO SCH ×2 (09:38→20:13)
[2016-08-27] MEDS: ASPIRIN CHEWABLE 81 MG TABLET. PO SCH (09:38)
[2016-08-27] MEDS: LACTOBACILLUS ACIDOPH & BULGAR 1 TABLET. PO SCH ×3 (09:38→20:13)
[2016-08-27] MEDS: PANTOPRAZOLE 40 MG TABLET.DR. PO SCH (09:38)
[2016-08-27] MEDS: busPIRone 10 MG TABLET. PO SCH ×3 (09:39→20:13)
[2016-08-27] MEDS: MULTIVITAMIN with MINERAL TABLET. PO SCH (09:39)
[2016-08-27] MEDS: FERROUS SULFATE 325 MG TABLET. PO SCH (09:39)
[2016-08-27] MEDS: FLUCONAZOLE 100 MG TABLET. PO SCH (09:40)
[2016-08-27] MEDS: METOPROLOL TART IMMED RELEASE 25 MG TABLET. PO SCH ×2 (09:41→20:12)
[2016-08-27] MEDS: LORAZEPAM 0.5 MG TABLET. PO SCH (09:41)
[2016-08-27 11:00] VITALS: BP 149/67
--- NOTE | 2016-08-27 12:33 | PDOC ---
PROGRESS NOTES Chief Complaint Chief Complaint 1. chest pain, atypical, likely 2/2 muscular pain 2. severe dementia 3. DNR, from SNF 4. HTN 5. dehydration 6. + UA 7. moderate malnutrition with low po intake 8. bedbound 9. anemia, chronic likely, normacytic 10. hypokalemia plan: card consult, no intervention check echo, neg cont home meds, levemir 5u qhs, SSI dc aldactone ivf dced nutrition consult dvt ppx replete K decrease metoprolol to 12.5mg bid dc tmr History of Present Illness History of Present Illness chest pain gone, chest wall mild tenderness limited echo normal agitated last night, sleeping now, likely her baseline slightly low bp Vitals Vitals Vital Signs Date Time Temp Pulse Resp B/P Pulse Ox O2 Delivery O2 Flow Rate FiO2 08/27/16 11:00 97.5 69 19 149/67 96 Room Air 97.5 Physical Exam General: Alert, Cooperative, No acute distress Heart: Regular rate (SR), Normal S1, Normal S2, Other (2/6 systolic murmur to LLS border) Lungs: Clear Abdomen: Soft, No tenderness Extremities: No cyanosis, No edema Skin: No breakdown, No significant lesion Labs LABS Laboratory Tests Test 08/26/16 16:29 08/26/16 21:01 08/27/16 03:00 08/27/16 07:32 Glucose (Fingerstick) 100mg/dL (70-99) 109mg/dL (70-99) 94mg/dL (70-99) White Blood Count 6.7x10^3/uL (4.0-11.0) Red Blood Count 2.87x10^6/uL (3.50-5.40) Hemoglobin 8.9g/dL (12.0-15.5) Hematocrit 27.9% (36.0-47.0) Mean Corpuscular Volume 97fL (79-100) Mean Corpuscular Hemoglobin 31pg (25-35) Mean Corpuscular Hemoglobin Concent 32g/dL (31-37) Red Cell Distribution Width 15.7% (11.5-14.5) Platelet Count 366x10^3/uL (140-400) Neutrophils (%) (Auto) 57% (31-73) Lymphocytes (%) (Auto) 30% (24-48) Monocytes (%) (Auto) 10% (0-9) Eosinophils (%) (Auto) 2% (0-3) Basophils (%) (Auto) 1% (0-3) Neutrophils # (Auto) 3.8x10^3uL (1.8-7.7) Lymphocytes # (Auto) 2.0x10^3/uL (1.0-4.8) Monocytes # (Auto) 0.7x10^3/uL (0.0-1.1) Eosinophils # (Auto) 0.1x10^3/uL (0.0-0.7) Basophils # (Auto) 0.0x10^3/uL (0.0-0.2) Sodium Level 142mmol/L (136-145) Potassium Level 3.0mmol/L (3.5-5.1) Chloride Level 109mmol/L (98-107) Carbon Dioxide Level 26mmol/L (21-32) Anion Gap 7 (6-14) Blood Urea Nitrogen 18mg/dL (7-20) Creatinine 0.9mg/dL (0.6-1.0) Estimated GFR (Cockcroft-Gault) 59.0 Glucose Level 162mg/dL (70-99) Calcium Level 8.2mg/dL (8.5-10.1) Test 08/27/16 08:15 08/27/16 10:11 Magnesium Level 2.0mg/dL (1.8-2.4) Glucose (Fingerstick) 78mg/dL (70-99) Review of Systems Review of Systems no fever, chills, sob or chest pain Assessment and Plan Assessmemt and Plan Problems Medical Problems: (1) Chest pain Status: Acute (2) Dehydration Status: Acute (3) Tachycardia Status: Acute Problems: Comment Review of Relevant I have reviewed the following items jarred (where applicable) has been applied. Labs Laboratory Tests Test 08/25/16 17:30 08/25/16 19:56 08/26/16 00:15 08/26/16 06:00 White Blood Count 9.7x10^3/uL (4.0-11.0) Red Blood Count 3.63x10^6/uL (3.50-5.40) Hemoglobin 11.4g/dL (12.0-15.5) Hematocrit 35.1% (36.0-47.0) Mean Corpuscular Volume 97fL (79-100) Mean Corpuscular Hemoglobin 31pg (25-35) Mean Corpuscular Hemoglobin Concent 32g/dL (31-37) Red Cell Distribution Width 15.9% (11.5-14.5) Platelet Count 519x10^3/uL (140-400) Neutrophils (%) (Auto) 51% (31-73) Lymphocytes (%) (Auto) 39% (24-48) Monocytes (%) (Auto) 9% (0-9) Eosinophils (%) (Auto) 1% (0-3) Basophils (%) (Auto) 1% (0-3) Neutrophils # (Auto) 4.9x10^3uL (1.8-7.7) Lymphocytes # (Auto) 3.8x10^3/uL (1.0-4.8) Monocytes # (Auto) 0.8x10^3/uL (0.0-1.1) Eosinophils # (Auto) 0.1x10^3/uL (0.0-0.7) Basophils # (Auto) 0.1x10^3/uL (0.0-0.2) Sodium Level 140mmol/L (136-145) Potassium Level 4.0mmol/L (3.5-5.1) Chloride Level 100mmol/L (98-107) Carbon Dioxide Level 37mmol/L (21-32) Anion Gap 3 (6-14) Blood Urea Nitrogen 33mg/dL (7-20) Creatinine 1.1mg/dL (0.6-1.0) Estimated GFR (Cockcroft-Gault) 46.8 Glucose Level 123mg/dL (70-99) Calcium Level 9.7mg/dL (8.5-10.1) Total Bilirubin 0.2mg/dL (0.2-1.0) Direct Bilirubin 0.1mg/dL (0.0-0.2) Aspartate Amino Transf (AST/SGOT) 19U/L (15-37) Alanine Aminotransferase (ALT/SGPT) 19U/L (14-59) Alkaline Phosphatase 64U/L (46-116) Troponin I Quantitative < 0.017ng/mL (0.000-0.055) < 0.017ng/mL (0.000-0.055) OB-Gop-R-Type Natriuretic Peptide 335pg/mL (0-449) Total Protein 7.9g/dL (6.4-8.2) Albumin 2.7g/dL (3.4-5.0) Lipase 72U/L (73-393) Urine Collection Type U cath Urine Color Yellow Urine Clarity Cloudy Urine pH 7.5 Urine Specific [place]re <=1.005 Urine Protein Negativemg/dL (NEG-TRACE) Urine Glucose (UA) Negativemg/dL (NEG) Urine Ketones (Stick) Negativemg/dL (NEG) Urine Blood Small (NEG) Urine Nitrite Negative (NEG) Urine Bilirubin Negative (NEG) Urine Urobilinogen Dipstick 0.2mg/dL (0.2 mg/dL) Urine Leukocyte Esterase Large (NEG) Urine RBC 3-5/HPF (0-2) Urine WBC >40/HPF (0-4) Urine Squamous Epithelial Cells Few/LPF Urine Bacteria Many/HPF (0-FEW) Urine Mucus Mod/LPF Nasal Screen MRSA (PCR) Negative (Negative) Test 08/26/16 06:10 08/26/16 07:24 08/26/16 11:17 08/26/16 16:29 White Blood Count 8.6x10^3/uL (4.0-11.0) Red Blood Count 3.39x10^6/uL (3.50-5.40) Hemoglobin 10.9g/dL (12.0-15.5) Hematocrit 32.4% (36.0-47.0) Mean Corpuscular Volume 96fL (79-100) Mean Corpuscular Hemoglobin 32pg (25-35) Mean Corpuscular Hemoglobin Concent 34g/dL (31-37) Red Cell Distribution Width 15.9% (11.5-14.5) Platelet Count 458x10^3/uL (140-400) Neutrophils (%) (Auto) 60% (31-73) Lymphocytes (%) (Auto) 28% (24-48) Monocytes (%) (Auto) 10% (0-9) Eosinophils (%) (Auto) 1% (0-3) Basophils (%) (Auto) 1% (0-3) Neutrophils # (Auto) 5.1x10^3uL (1.8-7.7) Lymphocytes # (Auto) 2.4x10^3/uL (1.0-4.8) Monocytes # (Auto) 0.8x10^3/uL (0.0-1.1) Eosinophils # (Auto) 0.1x10^3/uL (0.0-0.7) Basophils # (Auto) 0.1x10^3/uL (0.0-0.2) Sodium Level 143mmol/L (136-145) Potassium Level 3.8mmol/L (3.5-5.1) Chloride Level 105mmol/L (98-107) Carbon Dioxide Level 32mmol/L (21-32) Anion Gap 6 (6-14) Blood Urea Nitrogen 26mg/dL (7-20) Creatinine 0.9mg/dL (0.6-1.0) Estimated GFR (Cockcroft-Gault) 59.0 Glucose Level 109mg/dL (70-99) Calcium Level 9.0mg/dL (8.5-10.1) Troponin I Quantitative < 0.017ng/mL (0.000-0.055) Glucose (Fingerstick) 78mg/dL (70-99) 133mg/dL (70-99) 100mg/dL (70-99) Test 08/26/16 21:01 08/27/16 03:00 08/27/16 07:32 08/27/16 08:15 Glucose (Fingerstick) 109mg/dL (70-99) 94mg/dL (70-99) White Blood Count 6.7x10^3/uL (4.0-11.0) Red Blood Count 2.87x10^6/uL (3.50-5.40) Hemoglobin 8.9g/dL (12.0-15.5) Hematocrit 27.9% (36.0-47.0) Mean Corpuscular Volume 97fL (79-100) Mean Corpuscular Hemoglobin 31pg (25-35) Mean Corpuscular Hemoglobin Concent 32g/dL (31-37) Red Cell Distribution Width 15.7% (11.5-14.5) Platelet Count 366x10^3/uL (140-400) Neutrophils (%) (Auto) 57% (31-73) Lymphocytes (%) (Auto) 30% (24-48) Monocytes (%) (Auto) 10% (0-9) Eosinophils (%) (Auto) 2% (0-3) Basophils (%) (Auto) 1% (0-3) Neutrophils # (Auto) 3.8x10^3uL (1.8-7.7) Lymphocytes # (Auto) 2.0x10^3/uL (1.0-4.8) Monocytes # (Auto) 0.7x10^3/uL (0.0-1.1) Eosinophils # (Auto) 0.1x10^3/uL (0.0-0.7) Basophils # (Auto) 0.0x10^3/uL (0.0-0.2) Sodium Level 142mmol/L (136-145) Potassium Level 3.0mmol/L (3.5-5.1) Chloride Level 109mmol/L (98-107) Carbon Dioxide Level 26mmol/L (21-32) Anion Gap 7 (6-14) Blood Urea Nitrogen 18mg/dL (7-20) Creatinine 0.9mg/dL (0.6-1.0) Estimated GFR (Cockcroft-Gault) 59.0 Glucose Level 162mg/dL (70-99) Calcium Level 8.2mg/dL (8.5-10.1) Magnesium Level 2.0mg/dL (1.8-2.4) Test 08/27/16 10:11 Glucose (Fingerstick) 78mg/dL (70-99) Laboratory Tests Test 08/26/16 16:29 08/26/16 21:01 08/27/16 03:00 08/27/16 07:32 Glucose (Fingerstick) 100mg/dL (70-99) 109mg/dL (70-99) 94mg/dL (70-99) White Blood Count 6.7x10^3/uL (4.0-11.0) Red Blood Count 2.87x10^6/uL (3.50-5.40) Hemoglobin 8.9g/dL (12.0-15.5) Hematocrit 27.9% (36.0-47.0) Mean Corpuscular Volume 97fL (79-100) Mean Corpuscular Hemoglobin 31pg (25-35) Mean Corpuscular Hemoglobin Concent 32g/dL (31-37) Red Cell Distribution Width 15.7% (11.5-14.5) Platelet Count 366x10^3/uL (140-400) Neutrophils (%) (Auto) 57% (31-73) Lymphocytes (%) (Auto) 30% (24-48) Monocytes (%) (Auto) 10% (0-9) Eosinophils (%) (Auto) 2% (0-3) Basophils (%) (Auto) 1% (0-3) Neutrophils # (Auto) 3.8x10^3uL (1.8-7.7) Lymphocytes # (Auto) 2.0x10^3/uL (1.0-4.8) Monocytes # (Auto) 0.7x10^3/uL (0.0-1.1) Eosinophils # (Auto) 0.1x10^3/uL (0.0-0.7) Basophils # (Auto) 0.0x10^3/uL (0.0-0.2) Sodium Level 142mmol/L (136-145) Potassium Level 3.0mmol/L (3.5-5.1) Chloride Level 109mmol/L (98-107) Carbon Dioxide Level 26mmol/L (21-32) Anion Gap 7 (6-14) Blood Urea Nitrogen 18mg/dL (7-20) Creatinine 0.9mg/dL (0.6-1.0) Estimated GFR (Cockcroft-Gault) 59.0 Glucose Level 162mg/dL (70-99) Calcium Level 8.2mg/dL (8.5-10.1) Test 08/27/16 08:15 08/27/16 10:11 Magnesium Level 2.0mg/dL (1.8-2.4) Glucose (Fingerstick) 78mg/dL (70-99) Medications Current Medications Ziprasidone 20 mg 20 mg 1X ONCE IM Last administered on 08/25/16 17:45; Start 08/25/16 at 17:45; Stop 08/25/16 at 17:46; Status DC Sodium Chloride 500 ml @ 500 mls/hr 1X ONCE IV Last administered on 08/25/16 18:41; Start 08/25/16 at 18:45; Stop 08/25/16 at 19:44; Status DC Ceftriaxone Sodium 50 ml @ 100 mls/hr 1X ONCE IV Last administered on 20:40; Start 08/25/16 at 20:45; Stop 08/25/16 at 21:14; Status DC Ceftriaxone Sodium/Sodium Chloride (Rocephin/Iv Sodium Chloride 0.9% 50ml) 50 ml @ 100 mls/hr Q24H IV Last administered on 08/26/16 21:24; Start 08/26/16 at 21:00 Ondansetron HCl 4 mg 4 mg PRN Q8HRS PRN IV NAUSEA/VOMITING; Start 08/25/16 at 23 :15; Stop 08/26/16 at 23:14; Status DC Sodium Chloride (Iv Sodium Chloride 0.9% 1000ml Bag) 1,000 ml @ 75 mls/hr [id number] IV Last administered on 08/26/16 13:19; Start 08/25/16 at 23:05; Stop at 23:04; Status DC Acetaminophen (Tylenol) 650 mg PRN Q4HRS PRN PO FEVER; Start 08/25/16 at 23:15; Stop 08/26/16 at 03:20; Status DC Acetaminophen (Tylenol) 650 mg PRN Q6HRS PRN PO MILD PAIN; Start 08/26/16 at 03: 15 Alprazolam (Xanax) 0.25 mg PRN TID PRN PO ANXIETY / AGITATION Last administered on 08/26/16 21:23; Start 08/26/16 at 03:15 Bisacodyl (Dulcolax Supp) 10 mg PRN DAILY PRN RC CONSTIPATION; Start 08/26/16 at 03:15 Buspirone HCl (Buspar) 10 mg TID PO Last administered on 08/27/16 09:39; Start 08/26/16 at 09:00 Calcium Carbonate/ Glycine (Tums) 500 mg TID PRN PRN PO HEARTBURN / GAS; Start 08/26/16 at 03:15 Cyanocobalamin (Vitamin B-12) 1,000 mcg QMONTH IM ; Start 09/16/16 at 09:00 Ferrous Sulfate (Feosol) 325 mg DAILY PO Last administered on 08/27/16 09:39; Start 08/26/16 at 09:00 Lorazepam (Ativan) 0.25 mg PRN BID PRN PO ANXIETY Last administered on 03:26; Start 08/26/16 at 03:15; Stop 08/26/16 at 13:36; Status DC Lorazepam (Ativan) 0.25 mg DAILY PO Last administered on 08/27/16 09:41; Start 08/26/16 at 09:00 Metoprolol Tartrate (Lopressor) 25 mg BID PO Last administered on 08/26/16 21: 23; Start 08/26/16 at 09:00; Stop 08/27/16 at 08:31; Status DC Mirtazapine (Remeron) 15 mg HS PO Last administered on 08/26/16 21:22; Start at 21:00 Quetiapine Fumarate (SEROquel) 25 mg AFTRNOON PO Last administered on 08/26/16 13:10; Start 08/26/16 at 13:00 Sertraline HCl (Zoloft) 25 mg HS PO Last administered on 08/26/16 21:22; Start 08/26/16 at 21:00 Spironolactone (Aldactone) 25 mg AFTRNOON PO Last administered on 08/26/16 13: 10; Start 08/26/16 at 13:00; Stop 08/26/16 at 13:33; Status DC Non-Formulary Medication 1 each BID PO ; Start 08/26/16 at 09:00; Status UNV Divalproex Sodium (Depakote Sprinkles) 125 mg BID PO Last administered on 09:38; Start 08/26/16 at 09:00 Fluconazole (Diflucan) 150 mg DAILY PO Last administered on 08/27/16 09:40; Start 08/26/16 at 09:00 Insulin Detemir (Levemir) 5 units QHS SQ Last administered on 08/26/16 21:33; Start 08/26/16 at 21:00 Lactobacillus Acidophilus (Bacid, Angelita-Bid) 2 tab TID PO Last administered on 09:38; Start 08/26/16 at 09:00 Al Hydroxide/Mg Hydroxide (Mylanta Plus Xs) 30 ml PRN Q2HR PRN PO HEARTBURN / GAS; Start 08/26/16 at 03:30 Multivitamins (Thera M Plus) 1 tab DAILY PO Last administered on 08/27/16 09:39 ; Start 08/26/16 at 09:00 Pantoprazole Sodium (Protonix) 40 mg DAILYAC PO Last administered on 08/27/16 09:38; Start 08/26/16 at 07:30 Aspirin (Children'S Aspirin) 81 mg DAILY PO Last administered on 08/27/16 09:38 ; Start 08/26/16 at 09:00 Buspirone HCl (Buspar) 10 mg TID PO ; Start 08/26/16 at 09:00; Status UNV Loperamide HCl (Imodium) 2 mg TID PRN PRN PO DIARRHEA; Start 08/26/16 at 03:15 Insulin Aspart (Novolog) 0-9 UNITS TIDWMEALS SQ ; Start 08/26/16 at 14:00 Dextrose (Dextrose 50%-Water Syringe) 12.5 gm PRN Q15MIN PRN IV SEE COMMENTS; Start 08/26/16 at 13:45 Metoprolol Tartrate (Lopressor) 12.5 mg BID PO Last administered on 08/27/16 09 :41; Start 08/27/16 at 09:00 Potassium Chloride (Klor-Con) 40 meq 1X ONCE PO Last administered on 08/27/16 09:39; Start 08/27/16 at 09:00; Stop 08/27/16 at 09:01; Status DC Active Scripts Active Reported Xanax (Alprazolam) 0.25 Mg Tablet 0.25 Mg PO PRN TID PRN Sertraline Hcl 25 Mg Tablet 25 Mg PO HS Seroquel (Quetiapine Fumarate) 25 Mg Tablet 1 Tab PO AFTRNOON Protonix (Pantoprazole Sodium) 20 Mg Tablet.dr 1 Tab PO BID Metoprolol Succinate ( Xl ) (Metoprolol Succinate) 25 Mg Tab.er.24h 1 Tab PO BID Lantus (Insulin Glargine,Hum.rec.anlog) 100 Unit/1 Ml Vial 5 Unit SQ HS Diflucan (Fluconazole) 150 Mg Tablet 150 Mg PO DAILY Depakote (Divalproex Sodium) 125 Mg Tablet.dr 125 Mg PO BID Cyanocobalamin Injection (Cyanocobalamin (Vitamin B-12)) 1,000 Mcg/1 Ml Vial 1 Ml IM QMONTH Buspirone Hcl 10 Mg Tablet 1 Tab PO TID Aspirin 81 Mg Tab.chew 1 Tab PO DAILY Aldactone (Spironolactone) 25 Mg Tablet 1 Tab PO AFTRNOON Acidophilus-Pectin Capsule (Lactobacillus Acidophilus/Pect) 1 Each Capsule 1 Each PO TID Tylenol (Acetaminophen) 325 Mg Tablet 650 Mg PO PRN Q6HRS PRN Remeron (Mirtazapine) 15 Mg Tablet 15 Mg PO HS Lorazepam 0.5 Mg Tablet 0.25 Mg PO DAILY Lorazepam 0.5 Mg Tablet 0.25 Mg PO BID PRN Buspirone Hcl 10 Mg Tablet 1 Tab PO TID Tums (Calcium Carbonate) 200 Mg Tab.chew 200 Mg PO PRN PRN Bisacodyl 10 Mg Supp.rect 10 Mg RC PRN DAILY PRN Alum-Mag Hydroxide-Simeth Liq (Mag Hydrox/Al Hydrox/Simeth) 360 Ml Oral.susp 30 Ml PO PRN PRN Loperamide (Loperamide Hcl) 2 Mg Tablet 2 Mg PO Nuedexta 20-10 Mg Capsule (Dextromethorphan Hbr/Quinidine) 1 Each Capsule 1 Each PO BID Multi Vitamin Daily (Multivitamin) 1 Each Tablet 1 Each PO DAILY Ferrous Sulfate 325 Mg Tablet 325 Mg PO DAILY Vitals/I & O Vital Sign - Last 24 Hours 08/26/16 08/26/16 08/26/16 08/26/16 14:38 19:00 20:00 21:23 Temp 97.5 97.9 97.5 97.9 Pulse 71 87 87 Resp 18 18 B/P 105/54 133/79 133/79 Pulse Ox 96 93 O2 Delivery Room Air Room Air Room Air 08/26/16 08/27/16 08/27/16 08/27/16 23:00 03:00 07:00 08:00 Temp 97.7 97.5 97.5 97.7 97.5 97.5 Pulse 68 83 59 Resp 18 18 18 B/P 85/37 129/54 133/68 Pulse Ox 96 96 96 O2 Delivery Room Air Room Air Room Air Room Air 08/27/16 08/27/16 09:41 11:00 Temp 97.5 97.5 Pulse 59 69 Resp 19 B/P 133/68 149/67 Pulse Ox 96 O2 Delivery Room Air Intake and Output 08/26/16 08/26/16 08/27/16 15:00 23:00 07:00 Intake Total 1140 ml 60 ml Balance 1140 ml 60 ml SURESH HALL MD August 27, 2016 12:33
[2016-08-27] MEDS: QUEtiapine 25 MG TABLET. PO SCH (12:59)
[2016-08-27 15:00] VITALS: BP 119/80
[2016-08-27 19:32] VITALS: BP 107/55
[2016-08-27] MEDS: SERTRALINE 25 MG TABLET. PO SCH (20:13)
[2016-08-27] MEDS: MIRTAZAPINE 15 MG TABLET PO SCH (20:13)
[2016-08-27] MEDS: INSULIN DETEMIR 300 UNITS/3 ML INSULN.PEN. SQ SCH (20:31)
[2016-08-27] MEDS: ALPRAZolam 0.25 MG TABLET PO PRN (23:31)
[2016-08-27 23:43] VITALS: BP 136/67
[2016-08-28 03:26] VITALS: BP 126/58
[2016-08-28 07:00] VITALS: BP 139/65
[2016-08-28 07:30] LABS: CALCIUM 8.8 mg/dL (8.5-10.1); GFR 52.2; POTASSIUM 4.1 mmol/L (3.5-5.1)
[2016-08-28 07:40] LABS: % SAT IRON 19 % (15-34); IRON,SERUM 34 ug/dL (50-170)
[2016-08-28 08:00] LABS: BASO % 0 % (0-3); EOS % 2 % (0-3); HEMATOCRIT 31.9 % (36.0-47.0); HEMOGLOBIN 10.3 g/dL (12.0-15.5); LYMPH # 3.4 x10^3/uL (1.0-4.8); LYMPH % 42 % (24-48); MEAN CORPUSCULAR HEMOGLOBIN 32 pg (25-35); MEAN CORPUSCULAR HGB CONC 32 g/dL (31-37); MEAN CORPUSCULAR VOLUME 98 fL (79-100); MONO % 7 % (0-9); NEUT % 48 % (31-73); PLATELET COUNT 442 x10^3/uL (140-400); RED BLOOD COUNT 3.25 x10^6/uL (3.50-5.40); RED CELL DISTRIBUTION WIDTH 16.3 % (11.5-14.5); WHITE BLOOD COUNT 8.1 x10^3/uL (4.0-11.0)
[2016-08-28] MEDS: INSULIN ASPART 300 UNITS/3 ML INSULN.PEN SQ SCH ×2 (08:00→11:45)
[2016-08-28] MEDS: DIVALPROEX SPRINKLES 125 MG CAPSULE. PO SCH (08:28)
[2016-08-28] MEDS: PANTOPRAZOLE 40 MG TABLET.DR. PO SCH (08:29)
[2016-08-28] MEDS: LACTOBACILLUS ACIDOPH & BULGAR 1 TABLET. PO SCH ×2 (08:29→12:04)
[2016-08-28] MEDS: METOPROLOL TART IMMED RELEASE 25 MG TABLET. PO SCH (08:30)
[2016-08-28] MEDS: FERROUS SULFATE 325 MG TABLET. PO SCH (08:30)
[2016-08-28] MEDS: LORAZEPAM 0.5 MG TABLET. PO SCH (08:30)
[2016-08-28] MEDS: busPIRone 10 MG TABLET. PO SCH ×2 (08:31→12:03)
[2016-08-28] MEDS: FLUCONAZOLE 100 MG TABLET. PO SCH (08:31)
[2016-08-28] MEDS: MULTIVITAMIN with MINERAL TABLET. PO SCH (08:31)
[2016-08-28] MEDS: ASPIRIN CHEWABLE 81 MG TABLET. PO SCH (08:32)
[2016-08-28 08:40] LABS: VITAMIN-B12 357 pg/mL (247-911)
[2016-08-28 09:27] LABS: FOLATE > 20.00 ng/ml (3.2-20.0)
[2016-08-28 11:00] VITALS: BP 127/48
--- NOTE | 2016-08-28 11:57 | PDOC3 ---
Discharge Summary [facility] Date of Admission: August 25, 2016 Discharge Date: August 28, 2016 Admitting Diagnosis 1. chest pain, atypical, likely 2/2 muscular pain 2. severe dementia 3. DNR, from SNF 4. HTN 5. dehydration 6. + UA 7. moderate malnutrition with low po intake 8. bedbound 9. anemia, chronic likely, normacytic 10. hypokalemia Problems: Final Diagnosis CONSULTS card Brief Hospital Course Ms. Sahu is a 89 old F, from SNF, severe dementia, aaox0, agitated sometimes, dnr. was sent for chest pain. pt denies chest pain in hosp, echo basically normal with limited exam. Card consulted, no intervention + ua, no ucx, on ceftriaxone x3ds. dced aldactone. dc snf dc time 35min General: Alert, No acute distress. aaox0. Heart: Regular rate (SR), Normal S1, Normal S2, Other (2/6 systolic murmur to LLS border) Lungs: Clear Abdomen: Soft, No tenderness Extremities: No cyanosis, No edema Skin: No breakdown, No significant lesion Problems: Disposition home CONDITION AT DISCHARGE: Improved Diet regular Scheduled Aspirin (Aspirin), 1 TAB PO DAILY, (Reported) Buspirone Hcl (Buspirone Hcl), 1 TAB PO TID, (Reported) Cyanocobalamin (Vitamin B-12) (Cyanocobalamin Injection), 1 ML IM QMONTH, ( Reported) Dextromethorphan Hbr/Quinidine (Nuedexta 20-10 Mg Capsule), 1 EACH PO BID, ( Reported) Divalproex Sodium (Depakote), 125 MG PO BID, (Reported) Ferrous Sulfate (Ferrous Sulfate), 325 MG PO DAILY, (Reported) Insulin Glargine,Hum.rec.anlog (Lantus), 5 UNIT SQ HS, (Reported) Lactobacillus Acidophilus/Pect (Acidophilus-Pectin Capsule), 1 EACH PO TID, ( Reported) Lorazepam (Lorazepam), 0.25 MG PO DAILY, (Reported) Metoprolol Succinate (Metoprolol Succinate ( Xl )), 1 TAB PO BID, (Reported) Mirtazapine (Remeron), 15 MG PO HS, (Reported) Multivitamin (Multi Vitamin Daily), 1 EACH PO DAILY, (Reported) Pantoprazole Sodium (Protonix), 1 TAB PO BID, (Reported) Quetiapine Fumarate (Seroquel), 1 TAB PO AFTRNOON, (Reported) Sertraline Hcl (Sertraline Hcl), 25 MG PO HS, (Reported) Scheduled PRN Acetaminophen (Tylenol), 650 MG PO PRN Q6HRS PRN for PAIN, (Reported) Alprazolam (Xanax), 0.25 MG PO PRN TID PRN for ANXIETY / AGITATION, (Reported) Bisacodyl (Bisacodyl), 10 MG RC PRN DAILY PRN for CONSTIPATION, (Reported) Calcium Carbonate (Tums), 200 MG PO PRN PRN for HEARTBURN / GAS, (Reported) Lorazepam (Lorazepam), 0.25 MG PO BID PRN for prn bid, (Reported) Mag Hydrox/Al Hydrox/Simeth (Alum-Mag Hydroxide-Simeth Liq), 30 ML PO PRN PRN for HEARTBURN / GAS, (Reported) Miscellaneous Medications Loperamide Hcl (Loperamide), 2 MG PO, (Reported) Discontinued Medications Amlodipine Besylate (Amlodipine Besylate), 1 TAB PO DAILY, (Reported) Buspirone Hcl (Buspirone Hcl), 1 TAB PO TID, (Reported) Citalopram Hydrobromide (Citalopram Hbr), 1 TAB PO DAILY, (Reported) Fluconazole (Diflucan), 150 MG PO DAILY, (Reported) Hydrochlorothiazide (Hydrochlorothiazide Capsule ), 1 CAP PO DAILY, (Reported ) Lisinopril (Lisinopril), 1 TAB PO DAILY, (Reported) Potassium Chloride (Potassium Chloride), 1 CAP PO 3X/WEEK, (Reported) Sennosides/Docusate Sodium (Sennalax-S Tablet), 1 EACH PO DAILY, (Reported) Spironolactone (Aldactone), 1 TAB PO AFTRNOON, (Reported) Follow Up pcp in 2 weeks SURESH HALL MD August 28, 2016 11:57
[2016-08-28] MEDS: QUEtiapine 25 MG TABLET. PO SCH (12:03)
[2016-09-16] MEDS ORDERED: CYANOCOBALAMIN (VITAMIN B-12) 1,000 MCG/ML VIAL IM SCH (09:00)
== END 2016-08-28 14:20 | disposition home or self-care (01) | DRG 690 ==
LOC: ER 17:18 → 5 NORTH 19:59
PROVIDERS: ADMIT Internal Medicine; ATTEND Internal Medicine
DX: N39.0 Urinary tract infection, site not specified (principal); E44.0 Moderate protein-calorie malnutrition; E86.0 Dehydration; R07.89 Other chest pain; D64.9 Anemia, unspecified; E78.00 Pure hypercholesterolemia, unspecified; E78.5 Hyperlipidemia, unspecified; E87.6 Hypokalemia; F02.80 Dementia in other diseases classified elsewhere, unspecified severity, without behavioral disturbance, psychotic disturbance, mood disturbance, and anxiety; G30.9 Alzheimer's disease, unspecified; I10 Essential (primary) hypertension; K21.9 Gastro-esophageal reflux disease without esophagitis; Z66 Do not resuscitate; Z96.649 Presence of unspecified artificial hip joint; F32.9 Major depressive disorder, single episode, unspecified; F41.9 Anxiety disorder, unspecified; M19.90 Unspecified osteoarthritis, unspecified site; Z68.25 Body mass index [BMI] 25.0-25.9, adult; Z83.3 Family history of diabetes mellitus; Z82.49 Family history of ischemic heart disease and other diseases of the circulatory system; Z74.01 Bed confinement status; Z88.6 Allergy status to analgesic agent; Z88.2 Allergy status to sulfonamides; Z88.8 Allergy status to other drugs, medicaments and biological substances
CPT/HCPCS: 36415; 71010; 80048; 80076; 81001; 82607; 82728; 82746; 82947; 83540; 83550; 83690; 83735; 83880; 84484; 85027; 87086; 87641; 93005; 93306; 96361; 96365; 96372; J0690; J0696; J1815; J3486; J7030; J7040; 97530; 97535; 99285-25